=== PATIENT | female | born 1975 | race Two or more races ===

== ENCOUNTER 2023-10-06 13:14 | Emergency (ER) | payer OTHER ==
[~2023-10-06] VITALS: Ht 157.5 cm; Wt 72.6 kg
[2023-10-06] MEDS ORDERED: CLEOCIN HCL300 MG PO (16:08)
[2023-10-06] MEDS ORDERED: CLINDAMYCIN PHOSPHATE 150 MG/ML (300mg) IM ONE (16:15)
[2023-10-06] MEDS ORDERED: DEXAMETHASONE SODIUM PHOSPHATE 4 MG/ML VIAL IM ONE (16:15)
== END 2023-10-06 16:29 | disposition home or self-care (01) ==
LOC: ER 13:15
DX: K11.21 Acute sialoadenitis (principal); Z88.0 Allergy status to penicillin; Z88.6 Allergy status to analgesic agent